=== PATIENT | male | born 1975 | race Caucasian/White ===

== ENCOUNTER 2023-01-16 15:03 | Outpatient (OUT) | payer OTHER, SELFPAY ==
[2023-01-16 15:23] LABS: Basophils Absolute Auto 0.1 10^3/uL (0.0-0.1); Basophils Percent Auto 0.8 % (0.2-2.0); Eosinophils Absolute Auto 0.1 10^3/uL (0.0-0.7); Hematocrit 44.1 % (42.0-54.0); Hemoglobin 14.8 g/dL (14.0-18.0); Immature Granulocytes Abs Auto 0.01 10^3/uL (0.00-0.03); Immature Granulocytes Pct Auto 0.1 % (0.0-0.5); Lymphocytes Absolute Auto 2.2 10^3/uL (1.2-3.8); Mean Corpuscular HGB Conc 33.6 g/dL (29.9-35.2); Mean Corpuscular Hemoglobin 30.4 pg (25.9-34.0); Mean Corpuscular Volume 90.6 fL (80.0-94.0); Mean Platelet Volume 9.2 fL (9.5-13.5); Monocytes Absolute Auto 0.7 10^3/uL (0.3-0.8); Monocytes Percent Auto 8.4 % (1.7-12.0); Neutrophils Absolute Auto 4.9 10^3/uL (1.4-6.5); Neutrophils Percent Auto 61.7 % (43.0-75.0); Platelet Count 266 10^3/uL (150-450); Red Blood Count 4.87 10^6/uL (4.70-6.10); Red Cell Distribution Width 12.7 % (11.0-15.0); White Blood Count 7.9 10^3/uL (4.0-11.0)
[2023-01-16 15:37] LABS: Estimated Average Glucose 108 mg/dL; Glycohemoglobin A1C 5.4 % (4.5-6.2)
[2023-01-16 15:50] LABS: Alanine Aminotransferase 25 U/L (16-63); Albumin Globulin Ratio 1.1; Albumin Level 4.2 g/dL (3.4-5.0); Alkaline Phosphatase 67 U/L (46-116); Anion Gap 8.6; Aspartate Amino Transferase 17 U/L (15-37); Bilirubin Direct 0.1 mg/dL (0.0-0.2); Bilirubin Total 0.5 mg/dL (0.2-1.0); Calcium 9.3 mg/dL (8.5-10.1); Chloride 103 mmol/L (98-107); Chol HDL Ratio 3.9; Cholesterol 189 mg/dL (<=200); Estimated GFR (African America >60 (>=60); Estimated GFR (Non-African Ame >60 (>=60); Globulin 3.7 g/dL; Glucose 80 mg/dL (74-106); HDL Cholesterol 49 mg/dL (40-60); Potassium 3.6 mmol/L (3.5-5.1); Sodium 140 mmol/L (136-145); Thyroid Stimulating Hormone 3.241 uIU/mL (0.358-3.740); Total Protein 7.9 g/dL (6.4-8.2); Triglycerides 185 mg/dL (<=150)
[2023-01-16 15:55] LABS: Prostate Specific Antigen Scrn 1.14 ng/mL (<=4.00)
== END 2023-01-16 15:04 | disposition home or self-care (01) ==
LOC: LAB 15:10
PROVIDERS: PCP Family Medicine; Visit Provider Family Medicine
DX: Z00.00 Encounter for general adult medical examination without abnormal findings (principal)
CPT/HCPCS: 36415; 80048; 80061; 80076; 83036; 84443; 85025; G0103

== ENCOUNTER 2025-02-23 13:44 | Outpatient (OUT) | payer OTHER, SELFPAY ==
--- OUTSIDE RECORDS SUMMARY | 2025-02-23 13:48 | XMS_ITS | Clinical Summary ---
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 Discussed proper diet and regular aerobic exercise. Need aerobic exercise 5-6 days a week for 30 minutes at a time. Smaller portions and limit total calories. Refer for colonoscopy. Tetanus every 10 years. Advised not to smoke. Discussed daily Aspirin therapy. Social History Tobacco UseTypesPacks/DayYears UsedDateSmoking Tobacco: NeverSmokeless Tobacco: Never Tobacco Cessation:Counseling Given: Not Answered Sex and Gender InformationValueDate RecordedSex Assigned at BirthNot on file Legal OjoYukc43/29/2023 9:18 AM ESTGender IdentityNot on fileSexual Orientation Not on file Last Filed Vital Signs Vital SignReadingTime TakenCommentsBlood Ifspwqic632/6601/27/2024 2:19 PM EST Higuj825301/27/2024 2:19 PM ZSNRhlhwtykehk75.2 ??C (97.1 ??F)01/27/2024 2:19 PM ESTRespiratory Fdxn370203/29/2023 2:19 PM ESTOxygen Edailkswed40%01/27/2024 2:19 PM ESTInhaled Oxygen Concentration--Fqibmn06.7 kg (169 lb)01/27/2024 2:19 PM EST Psmabs618.7 cm (5' 8 )01/27/2024 2:19 PM ESTBody Mass Index25.7103/29/2023 2:19 PM EST Plan of Treatment Not on file Insurance Care Teams Team MemberRelationshipSpecialtyStart DateEnd Date Neil Baird MD PCP - GeneralFamily Gcmxvyas09/2/24
--- OUTSIDE RECORDS SUMMARY | 2025-02-23 13:48 | XMS_ITS | Clinical Summary ---
Author Organization [email or web address] [facility] Address [id number] [address] 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 Max Daily Amount:4 tablets 15 tablet 06/28/2017Active Additional Information Patient not taking.Reported on 07/12/2017 sulfamethoxazole-trimethoprim (BACTRIM DS) 800-160 mg per tablet Take 1 tablet by mouth 2 (two) times a day. 28 tablet 07/26/2017Active Additional Information Patient not taking.Reported on 08/30/2017 Active Problems No known active problems Family History Medical HistoryRelationNameCommentsHypertensionMotherRelationNameStatusComments Mother Social History Tobacco UseTypesPacks/DayYears UsedDateSmoking Tobacco: NeverSmokeless Tobacco: NeverAlcohol UseStandard Drinks/WeekCommentsYes0 (1 standard drink = 0.6 oz pure alcohol)socialChildcareAnswerDate QqxrmkdlWfwhuglumJbngmsl56/12/2019Employment AnswerDate PmrhwgkdJhtqasawojZoykcac46/12/2019Purpose - LifeAnswerDate Recorded Purpose and direction in xakdVolgrsx18/11/2021Sex and Gender InformationValue Date RecordedSex Assigned at BirthNot on fileLegal TaxLlci9609/30/2014 11:55 AM EDTGender IdentityNot on fileSexual OrientationNot on file Last Filed Vital Signs Vital SignReadingTime TakenCommentsBlood Ohvkurqs009/7207 8:49 AM EDT Pulse--Temperature--Respiratory Rate--Oxygen Saturation--Inhaled Oxygen Concentration--Uiexyl73.6 kg (160 lb)08/30/2017 8:49 AM LLNWrutrn384.3 cm (5' 9 )08/30/2017 8:49 AM EDTBody Mass Index23.63008/30/2017 8:49 AM EDT Plan of Treatment Health MaintenanceDue DateLast DoneCommentsDepression Kgksutkbd72/18/1990Tobacco Jjvrwaqor72/18/1990Adult BMI Veglmxzly93/18/1996DTaP,Tdap and Td Vaccines (1 - Tdap)1996Influenza Zdlznls3310/26/2024 Medical Devices Not on file Insurance Care Teams Team MemberRelationshipSpecialtyStart DateEnd Date Neil Baird MD PCP - General05/06/17
[2025-02-23 14:13] LABS: Hematocrit 43.5 % (42.0-54.0); Hemoglobin 14.9 g/dL (14.0-18.0); Immature Granulocytes Abs Auto 0.01 10^3/uL (0.00-0.03); Immature Granulocytes Pct Auto 0.1 % (0.0-0.5); Lymphocytes Absolute Auto 2.2 10^3/uL (1.2-3.8); Mean Corpuscular HGB Conc 34.3 g/dL (29.9-35.2); Mean Corpuscular Hemoglobin 30.6 pg (25.9-34.0); Mean Corpuscular Volume 89.3 fL (80.0-94.0); Platelet Count 269 10^3/uL (150-450); Red Blood Count 4.87 10^6/uL (4.70-6.10); White Blood Count 7.4 10^3/uL (4.0-11.0)
[2025-02-23 14:48] LABS: Alanine Aminotransferase 50 U/L (16-63); Albumin Globulin Ratio 1.2; Albumin Level 4.1 g/dL (3.4-5.0); Alkaline Phosphatase 73 U/L (46-116); Anion Gap 10.9; Aspartate Amino Transferase 26 U/L (15-37); Blood Urea Nitrogen 20.0 mg/dL (7.0-18.0); Calcium 9.2 mg/dL (8.5-10.1); Carbon Dioxide 28.9 mmol/L (21.0-32.0); Chloride 106 mmol/L (98-107); Cholesterol 231 mg/dL (<=200); Estimated GFR (African America >60 (>=60 mL/min/1.73m^2); Estimated GFR (Non-African Ame >60 (>=60 mL/min/1.73m^2); Globulin 3.3 g/dL; Glucose 98 mg/dL (74-106); HDL Cholesterol 46 mg/dL (40-60); Potassium 3.8 mmol/L (3.5-5.1); Sodium 142 mmol/L (136-145); Thyroid Stimulating Hormone 2.157 uIU/mL (0.358-3.740); Total Protein 7.4 g/dL (6.4-8.2); Triglycerides 177 mg/dL (<=150); VLDL CHOLESTEROL 35.4 mg/dL
--- OUTSIDE RECORDS SUMMARY | 2025-02-23 15:21 | XMS_ITS | CCD ---
Author Organization [facility] Care Team Providers Care Supervisor Sulfuric Acid Plant Name Role Phone DR NEIL CHEN Admitting Unavailable DR NEIL CHEN Attending Unavailable DR NEIL CHEN Primary Care Unavailable DR NEIL CHEN Consulting Unavailable Neil Chen MD Primary Care Provider NEIL CHEN Attending Unavailable Neil Chen MD Primary Care Provider Medications Current Medications MedicationDrug Class(es)DatesSig (Normalized)Sig (Original)acetaminophen 325 mg / oxyCODONE hydrochloride 5 mg oral tablet (1 source)Opioid AgonistStart: 53-64-9859cljZPCYUW-acetaminophen (PERCOCET) 5- 325 mg per tablet Indications: Encounter for sterilization Take 1 tablet by mouth every 6 (six) hours as needed for pain for up to 15 doses. Max Daily Amount: 4 tablets 15 tablet 06/28/2017 Activesulfamethoxazole 800 mg / trimethoprim 160 mg oral tablet (1 source)Dihydrofolate Reductase Inhibitor Antibacterial, Sulfonamide AntimicrobialStart: 33-98-7673jzkf 1 tablet by mouth twice daily sulfamethoxazole-trimethoprim (BACTRIM DS) 800-160 mg per tablet Take 1 tablet by mouth 2 (two) times a day. 28 tablet 07/26/2017 Active Problems Active Problems Problem ClassificationProblemDateDocumented DateEpisodic/ChronicOther screening for suspected conditions (not mental disorders or infectious disease) (3 sources)Encounter for screening for malignant neoplasm of prostate; Translations: [Patient encounter status]Onset: [id number] Past or Other Problems Problem ClassificationProblemDateDocumented DateEpisodic/ChronicUnclassified (2 sources)Patient encounter [id number] Results Test NameValueInterpretationReference RangeFacilityCBC AUTO DIFFon 01-15-2022 BASO #0.1 103/ulNormal0.0-0.1The [facility] HospitalComment on above:Performed By: #### CBC #### [facility] [address] [place] [address] Dr. Jennifer DonovanBasophils/100 WBC (Bld)0.8 %Normal0.2-2.0The [facility] Comment on above:Performed By: #### CBC #### [facility] [address] [place] [address] Dr. Jennifer Cardoza #0.1 103/ulNormal0.0-0.7The [facility] HospitalComment on above: Performed By: #### CBC #### [facility] [address] [place] [address] Dr. Jennifer Jiangosinophils/100 WBC (Bld)0.8 %Critically low0.9-7.0The [facility] HospitalComment on above:Performed By: #### CBC #### [facility] [address] [place] [address] Dr. Jennifer Jiangrythrocyte distribution width (RBC) [Ratio]12.7 %Pkcrmc69.0-15.0 The [facility] HospitalComment on above:Performed By: #### CBC #### [facility] [address] [place] [address] Dr. Jennifer DonovanHematocrit (Bld) [Volume fraction]44.9 %Equfuz99.0-54.0The [facility] HospitalComment on above:Performed By: #### CBC #### [facility] [address] [place] [address] Dr. Jennifer DonovanHemoglobin (Bld) [Mass/Vol]15.0 g/mYZxdflb58.0-18.0The [facility] HospitalComment on above:Performed By: #### CBC #### [facility] [address] [place] [address] Dr. Jennifer Pavon #0.01 10e3/ulNormal0.00-0.03The [facility] HospitalComment on above:Performed By: #### CBC #### [facility] [address] [address] [address] Jennifer Pavon %0.2 %Normal0.0-0.5The [facility] HospitalComment on above: Performed By: #### CBC #### [facility] [address] [place] [address] Dr. Jennifer Robb #2.1 103/ulNormal1.2-3.8The [facility] HospitalComment on above:Performed By: #### CBC #### [facility] [address] [place] [address] Dr. Jennifer Navarretehocytes/100 WBC (Bld)34.2 %Gmhkrq65.5-60.0The [facility] HospitalComment on above:Performed By: #### CBC #### [facility] [address] [place] [address] Dr. Jennifer BrownUAL DIFF REQNONormalThe [facility] HospitalComment on above: Performed By: #### CBC #### [facility] [address] [place] [address] Dr. Jennifer Dodson (RBC) [Entitic mass]29.8 jdUlawxb01.9-34.0The [facility] HospitalComment on above:Performed By: #### CBC #### [facility] [address] [place] [address] Dr. Jennifer Dodson (RBC) [Mass/Vol]33.4 g/hTIougcp90.9-35.2The [facility] HospitalComment on above:Performed By: #### CBC #### [facility] [address] [place] [address] Dr. Jennifer Dodson (RBC) [Entitic vol]89.3 iYGakaob96.0-94.0The [facility] HospitalComment on above:Performed By: #### CBC #### [facility] [address] [place] [address] Dr. Jennifer Orourke #0.5 103/ulNormal0.3-0.8The [facility] HospitalComment on above:Performed By: #### CBC #### [facility] [address] [address] [address] Jennifer Santiagoocytes/100 WBC (Bld)7.7 %Normal1.7-12.0The [facility] Comment on above:Performed By: #### CBC #### [facility] [address] [place] [address] Dr. Jennifer MarinelliUT #3.4 103/ulNormal1.4-6.5The [facility] HospitalComment on above:Performed By: #### CBC #### [facility] [address] [place] [address] Dr. Jennifer Marinelliutrophils/100 WBC (Bld)56.3 %Ychbhs15.0-75.0The [facility] HospitalComment on above:Performed By: #### CBC #### [facility] [address] [place] [address] Dr. Jennifer DonovanPlatelet mean volume (Bld) [Entitic vol]9.8 fLNormal9.5-13.5The [facility] HospitalComment on above:Performed By: #### CBC #### [facility] [address] [place] [address] Dr. Jennifer DonovanPLT274 103/mrBlmhfn336-254Pix [facility] HospitalComment on above: Performed By: #### CBC #### [facility] [address] [place] [address] Dr. Jennifer DonovanRBC5.03 106/ulNormal4.70-6.10The [facility] HospitalComment on above:Performed By: #### CBC #### [facility] [address] [place] [address] Dr. Jennifer DonovanWBC6.0 103/ulNormal4.0-11.0The [facility] HospitalComment on above: Performed By: #### CBC #### [facility] [address] [place] [address] Dr. Jennifer DonovanGLYCOHEMOGLOBIN A1Con 61-73-3721WVT RECOMMENDATIONSEE BELOWNormal The [facility] HospitalComment on above:Result Comment: ADA RECOMMENDED LIMIT 4.0 - 6.0 ADA THERAPEUTIC TARGET < 7.0 ACTION SUGGESTED > 7.0Performed By: #### A1C #### [facility] [address] [address] [address] Jennifer DonovanGlucose [Mass/Vol]111 mg/dLNoUniversity Hospitals Samaritan Medical CenterComment on above:Performed By: #### A1C #### [facility] [address] [address] [address] Jennifer DonovanHbA1c (Bld) [Mass fraction]5.5 %Normal4.5-6.2The [facility] HospitalComment on above:Performed By: #### A1C #### [facility] [address] [place] [address] Dr. Jennifer DonovanLIPID PROFILEon 04-99-0813UKWP-HDL RATIO NORMSEE [facility] CenterComment on above:Result Comment: 3.3 - 4.4 LOW RISK 4.4 - 7.1 AVERAGE RISK 7.1 - 11.0 MODERATE RISK >11.0 HIGH RISKPerformed By: #### TSH, BMP, LIPID, LIVER #### [facility] [address] [place] [address] Dr. Jennifer DonovanCholesterol [Mass/Vol]182 mg/dLNormal<=200The [facility] Comment on above:Performed By: #### TSH, BMP, LIPID, LIVER #### [facility] [address] [place] [address] Dr. Jennifer DonovanCholesterol in HDL [Mass/Vol]48 mg/fZGzfbhz38-91Yrk [facility] HospitalComment on above:Performed By: #### TSH, BMP, LIPID, LIVER #### [facility] [address] [address] [address] Jennifer DonovanCholesterol in LDL [Mass/Vol]110.8 mg/dLMansfield Hospital on above:Performed By: #### TSH, BMP, LIPID, LIVER #### [facility] [address] [place] [address] Dr. Jennifer Alfredoesterxochilt.total/Cholesterol in HDL [Mass ratio]3.8 {ratio} NormalThe Rachel HospitalComment on above:Performed By: #### TSH, BMP, LIPID, LIVER #### [facility] [address] [address] [address] Jennifer Obregon NORMAL> or = 60 mg/dl - LOW CARDIOVASCULAR RISK <40 mg/dl - HIGH CARDIOVASCULAR RISKLutheran HospitalComment on above:Performed By: #### TSH, BMP, LIPID, LIVER #### [facility] [address] [address] [address] Jennifer DonovanLDL CALC NORMALSEE BELOWNoUniversity Hospitals Samaritan Medical CenterComment on above:Result Comment: <100 mg/dl OPTIMAL 100 - 129 mg/dl NEAR OR ABOVE OPTIMAL 130 - 159 mg/dl BORDERLINE HIGH 160 - 189 mg/dl HIGH >190 mg/dl VERY HIGH Performed By: #### TSH, BMP, LIPID, LIVER #### [facility] [address] [place] [address] Dr. Jennifer DonovanTriglyceride [Mass/Vol]116 mg/dLNormal<=150[facility] Comment on above:Performed By: #### TSH, BMP, LIPID, LIVER #### [facility] [address] [address] [address] Jennifer Harrison CALC23.2 mg/dLNoUniversity Hospitals Samaritan Medical CenterComtrinity health [facility] on above: Performed By: #### TSH, BMP, LIPID, LIVER #### [facility] [address] [place] [address] Dr. Jennifer Bonilla PROFILEon 05-48-6684Jjuyuzq [Mass/Vol]4.5 g/dLNormal3.4-5.0 The [facility] HospitalComtrinity health mus[facility]gon hospital on above:Performed By: #### TSH, BMP, LIPID, LIVER #### [facility] [address] [place] [address] Dr. Jennifer DonovanAlbumin/Globulin [Mass ratio]1.3 {ratio}NormalDayton Children's Hospital on above:Performed By: #### TSH, BMP, LIPID, LIVER #### [facility] [address] [address] [address] Jennifer Milian [Catalytic activity/Vol]68 U/NFpkfjm93-537Hrq [facility] HospitalComment on above:Performed By: #### TSH, BMP, LIPID, LIVER #### [facility] [address] [place] [address] Dr. Jennifer Stewart [Catalytic activity/Vol]23 U/GCipczi97-13Eew [facility] HospitalComment on above:Performed By: #### TSH, BMP, LIPID, LIVER #### [facility] [address] [address] [address] Jennifer Vee [Catalytic activity/Vol]15 U/BKoxkeb59-72Gws [facility] HospitalComment on above:Performed By: #### TSH, BMP, LIPID, LIVER #### [facility] [address] [place] [address] Dr. Jennifer NowakI, CONJUGATED0.1 mg/dLNormal0.0-0.2The [facility] Comment on above:Performed By: #### TSH, BMP, LIPID, LIVER #### [facility] [address] [place] [address] Dr. Jennifer Nowakirubin [Mass/Vol]0.5 mg/dLNormal0.2-1.0[facility] Comment on above:Performed By: #### TSH, BMP, LIPID, LIVER #### [facility] [address] [place] [address] Dr. Jennifer DonovanGlobulin (S) [Mass/Vol]3.5 g/dLNormalThe [facility] HospitalComment on above:Performed By: #### TSH, BMP, LIPID, LIVER #### [facility] [address] [place] [address] Dr. Jennifer DonovanProtein [Mass/Vol]8.0 g/dLNormal6.4-8.2[facility] Comment on above:Performed By: #### TSH, BMP, LIPID, LIVER #### [facility] [address] [place] [address] Dr. Jennifer DonovanPROF CHEM 8 (BAS METB)on 09-23-8368Mxvxj gap [Moles/Vol]10.2 mmol/LNormalThe [facility] HospitalComment on above:Performed By: #### TSH, BMP, LIPID, LIVER #### [facility] [address] [address] [address] Jennifer DonovanCalcium [Mass/Vol]9.2 mg/dLNormal8.5-10.1[facility] Comment on above:Performed By: #### TSH, BMP, LIPID, LIVER #### [facility] [address] [place] [address] Dr. Jennifer DonovanChloride [Moles/Vol]103 mmol/HObprtd62-289Esr [facility] Comment on above:Performed By: #### TSH, BMP, LIPID, LIVER #### [facility] [address] [place] [address] Dr. Jennifer DonovanCO2 [Moles/Vol]31.2 mmol/GOrjgpl74.0-32.0[facility] Comment on above:Performed By: #### TSH, BMP, LIPID, LIVER #### [facility] [address] [place] [address] Dr. Jennifer DonovanCreatinine [Mass/Vol]1.14 mg/dLNormal0.70-1.30The [facility] HospitalComment on above:Performed By: #### TSH, BMP, LIPID, LIVER #### [facility] [address] [place] [address] Dr. Jennifer JiangGFR-AF LUXEMBOURGER>60Normal>=60The [facility] HospitalComment on above:Performed By: #### TSH, BMP, LIPID, LIVER #### [facility] [address] [place] [address] Dr. Jennifer JiangGFR-NON AF LUXEMBOURGER>60Normal>=60The [facility] HospitalComment on above:Performed By: #### TSH, BMP, LIPID, LIVER #### [facility] [address] [place] [address] Dr. Jennifer DonovanGlucose [Mass/Vol]97 mg/lPAfdkek05-712QwfFirelands Regional Medical Center Comment on above:Performed By: #### TSH, BMP, LIPID, LIVER #### [facility] [address] [place] [address] Dr. Jennifer DonovanPotassium [Moles/Vol]3.4 mmol/LCritically low3.5-5.1The [facility] HospitalComment on above:Performed By: #### TSH, BMP, LIPID, LIVER #### [facility] [address] [address] [address] Jennifer DonovanSodium [Moles/Vol]141 mmol/XGcppeg015-130Mhn [facility] Comment on above:Performed By: #### TSH, BMP, LIPID, LIVER #### [facility] [address] [address] [address] Jennifer DonovanUrea nitrogen [Mass/Vol]14.0 mg/dLNormal7.0-18.0The [facility] HospitalComment on above:Performed By: #### TSH, BMP, LIPID, LIVER #### [facility] [address] [address] [address] Jennifer Dougherty nitrogen/Creatinine [Mass ratio]12.3 mg/mgNormalThe [facility] HospitalComment on above:Performed By: #### TSH, BMP, LIPID, LIVER #### [facility] [address] [address] [address] Jennifer Louie 69-55-1649THK5.226 uIU/mLNormal0.358-3.740The [facility] HospitalComment on above:Performed By: #### TSH, BMP, LIPID, LIVER #### [facility] [address] [address] [address] Jennifer Donovan Vital Signs Date TimeVital SignValuePerforming NgkgplwwnVrkxjhqk87-54-4801 14:19-0500Body tthfmo323.7 cmNeil Chen MD Work Phone: noHaw[facility] Psychiatric HospitalJiowsxboef43-55-8752 14:19-0500Body mass index (BMI) [Ratio]25.7 kg/m2Neil Chne MD Work Phone: noHawthorn [facility] Psychiatric HospitalBlnwafjvds51-97-9160 14:19-0500Body temperature 97.11 [degF]Neil Chen MD Work Phone: [facility] CenterEjndwkgklm11-34-6436 14:19-0500Body bybcmm49.66 kgNeil Chen MD Work Phone: noHaw[facility] Psychiatric HospitalNvbfcjknfi30-36-2882 14:19-0500Diastolic blood byiwbzkj98 mm[Hg]Neil Chen MD Work Phone: noHawth[facility] Psychiatric HospitalQecyhsuhef68-82-5671 14:19-0500Heart rate78 /min Neil Chen MD Work Phone: noHaw[facility]iatric HospitalZoyoazrwyc69-16-2743 14:19-0500Respiratory rate18 /minNeil Chen MD Work Phone: noHawthorn [facility] Psychiatric HospitalTssisqpbkw76-34-4352 14:19-5470CuK1% (BldA) [Mass fraction]99 %Neil Chen MD Work Phone: noHawthorn [facility] Psychiatric HospitalQvugilnffy65-25-3032 14:19-0500Systolic blood gipwvrze773 mm[Hg]Neil Chen MD Work Phone: [facility] Encounters Encounter DateEncounter TypeCare ProviderFacilityStart: 01-29-2024 End: 49-86-4686Vavmxmdgp encounterJesshussain NUNESPOULTRY BREEDER Work Phone: [facility] SurgeryStart: 01-27-2024 End: 13-46-5612Zfhqtwpe preventive med est patient 40-64yrsMarc Brie RAMOS Work Phone: [facility] FMComment on above:Annual physical exam (Primary Dx); Colon cancer screeningStart: 01-27-2024 End: 61-44-7033wvjncuwzjoVDFU NADERERNot AvailableStart: 01-27-2024 End: 50-89-6337Wnefli flowsMao Chen MD Work Phone: [facility] FMStart: 01-27-2024 End: 19-36-0986Kisjpe flowsMao Chen MD Work Phone: [facility] FMStart: 01-27-2024 End: 18-27-9386Qcgcact encounter procedureNeil Chen MD Work Phone: [facility] HealthcareStart: 69-94-9627Jtjgpqbqg for general adult medical examination without abnormal findingsDR NEIL Burden [facility] HospitalStart: 01-15-2022 End: 05-91-4784egflmomxbjGQ NEIL IVORYRFacility:I0Ldgkz: 01-15-2022 End: 04-26-4684Ialutmalu for general adult medical examination without abnormal findingsDR NEIL IVORYRFacility:H1 Procedures DateProcedureProcedure DetailPerforming ClinicianStart: 07-02-9997CQM screening DR NEIL MEDINAomment on above:Performed By: #### PSASC #### [facility] [address] [place] [address] Dr. Jennifer Donovan Plan of Treatment DateCare ActivityDetailAuthorStart: 01-27-2024 End: 24-43-9874Hatjtyd encounter gyfcxmtsp08/02/2024 2:15 PM EST Office Visit [facility] [address] [place] [phone] Neil Chen MD [address] [place] [phone] ArrivedNOALLIANCEHEALTH [facility] FMComment on above:ArrivedStart: 01-27-2024 End: 44-47-2069Esufu metabolic 1998 panel - Serum or PlasmaBasic metabolic panel Lab Routine Annual physical exam Expected: 01/27/2024 (Approximate), Expires: 01/26/2025[facility] HealthcareComment on above:Expected: 01/27/2024 (Approximate), Expires: 01/26/2025Start: 01-27-2024 End: 70-70-1832NYW W Auto Differential panel - BloodCBC and differential Lab Routine Annual physical exam Expected: 01/27/2024 (Approximate), Expires: 1 03/29/2024[facility] HealthcareComment on above:Expected: 01/27/2024 (Approximate), Expires: 01/26/2025Start: 01-27-2024 End: 32-32-2655Bdhvthejgg A1c/Hemoglobin.total in BloodHemoglobin A1c Lab Routine Annual physical exam Expected: 01/27/2024 (Approximate), Expires: 01/26/2025[facility] Work Phone: Comment on above:Expected: 01/27/2024 (Approximate), Expires: 01/26/2025Start: 01-27-2024 End: 62-11-6897Taldsks function 2000 panel - Serum or PlasmaHepatic function panel Lab Routine Annual physical exam Expected: 01/27/2024 (Approximate), Expires: 01/26/2025[facility] HealthcareComment on above:Expected: 01/27/2024 (Approximate), Expires: 01/26/2025Start: 01-27-2024 End: 17-35-4828Efxxy 1996 panel - Serum or PlasmaLipid panel Lab Routine Annual physical exam Expected: 01/27/2024 (Approximate), Expires: 01/26/2025[facility] HealthcareComment on above:Expected: 01/27/2024 (Approximate), Expires: 01/26/2025Start: 01-27-2024 End: 35-46-5901Astzhtjd specific Ag [Mass/volume] in Serum or PlasmaPSA Lab Routine Annual physical exam Expected: 01/27/2024 (Approximate), Expires: 01/26/2025[facility] HealthcareComment on above:Expected: 01/27/2024 (Approximate), Expires: 01/26/2025Start: 01-27-2024 End: 14-54-1863Rhfkwogssga [Units/volume] in Serum or PlasmaTSH Lab Routine Annual physical exam Expected: 01/27/2024 (Approximate), Expires: 01/26/2025[facility] HealthcareComment on above:Expected: 01/27/2024 (Approximate), Expires: 01/26/2025Start: 79-68-0676Mgjectzmx vaccinationKANE COUNTY HUMAN RESOURCE SSD HealthcareStart: 1996 DTaP,Tdap and Td Vaccines (1 - Tdap)DTaP,Tdap and Td Vaccines (1 - Tdap) [facility] Beat My Waste Quote SystemStart: 43-14-7264Ogdva BMI ScreeningAdult BMI Screening [facility] SystemStart: 28-38-8394Qvjzbxfsle ScreeningDepression Screening [facility] SystemStart: 60-67-5541Wvavuso ScreeningTobacco Screening [facility] SystemStart: 62-57-5067Embopopkw for malignant neoplasm of colonKANE COUNTY [facility] Payers DatePayer CategoryPayerPolicy [id number] OTHER [id number] 75-57-2696Zchswou Care Other (unspecified)FRONTPATH [id number] Social History DateTypeDetailFacilityTobacco smoking status NHISTobacco smoking consumption unknownNOPR HealthcareStart: 90-47-5502Ubw assigned at birthNot on fileNOMS HealthcareStart: 04-07-2020 End: 68-51-4601Pegpml identityNot on [facility] HealthcareStart: 05-22-2017 End: 96-62-5065Clhqbra smoking status NHISNever smoked tobaccoNOMS Healthcare Start: 05-22-2017 End: 87-15-0318Zevkrnj use and exposureSmokeless tobacco non-userNOMS Healthcare Start: 04-07-2020 End: 99-52-8439Qbnftlx of Social functionNOPR HealthcareStart: 07-26-2017 Alcoholic beverage intakeCurrent drinker of alcohol (finding)[facility] HospitalChildcareUnknowBerger Hospital SystemStart: 78-96-6676Rmbrfzf Comment [facility] SystemStart: 03-90-2246EnvNfbx (finding)[facility] Note 01-29-2024 Note Date & BgvdBaioCqyhkwau00-56-2042 Miscellaneous Notes* Telephone Encounter - Jailene Mills - 01/29/2024 10:34 AM EST Called Lindy regarding the screening colonoscopy referral that our office received from Dr Isa carrasco, was unable to leave a message as the voicemail box is full. We are unable to find out if we are providers for their insurance, so he would be considered as self pay. Called Dr Chen's office and spoke to Maya, she is going to try to contact the patient to see ifthey wish to check with their insurance to see if we are providers, if not Dr Chen will have to refer them elsewhere. documented in [facility] encounterNew[facility] Hospital Telephone encounter Note 01-29-2024 Note Date & CqqcMmmbDlinczou56-07-3855 Telephone encounter Note* Telephone Encounter - Jailene Mills - 01/29/2024 10:34 AM EST Called Lindy regarding the screening colonoscopy referral that our office received from Dr Isa carrasco, was unable to leave a message as the voicemail box is full. We are unable to find out if we are providers for their insurance, so he would be considered as self pay. Called Dr Chen's office and spoke to Maya, she is going to try to contact the patient to see ifthey wish to check with their insurance to see if we are providers, if not Dr Chen will have to refer them elsewhere. [facility] History of Present illness Narrative 01-27-2024 Note Date & IkksXzlqGtwebdyx72-74-3742 History of Present illness Narrative* Neil Chen MD - 01/27/2024 3:26 PM ESTAssociated Problem(s): Annual physical exam Due for labs. Discussed proper diet and regular aerobic exercise. Need aerobic exercise 5-6 days a week for 30 minutes at a time. Smaller portions and limit total calories. Refer for colonoscopy. Tetanus every 10 years. Advised not to smoke. Discussed daily Aspirin therapy. * Neil Chen MD - 01/27/2024 2:15 PM EST Images from the original note were not included. Subjective Patient ID: Frank Heck is a 48 y.o. male who presents for Annual Exam (wellness). Presents for annual PE. Doing well at today's visit. Weight unchanged over the past year. Tries to walk and stay active with the kids. Exercises several days a week. Tries to watch diet and eat healthy. Tries to limit portions and snacking. Tries to limit total daily calories. Due for labs. Never had colon cancer screening. Needs paperwork completed for insurance. Review of Systems Constitutional: Negative for fatigue. Respiratory: Negative for cough, shortness of breath and wheezing. Cardiovascular: Negative for chest pain and palpitations. Gastrointestinal: Negative for abdominal pain, diarrhea, nausea and vomiting. Genitourinary: Negative for dysuria. Objective Physical Exam Constitutional: General: He is not in acute distress. Appearance: Normal appearance. HENT: Head: Normocephalic. Right Ear: Tympanic membrane and ear canal normal. Left Ear: Tympanic membrane and ear canal normal. Eyes: Extraocular Movements: Extraocular movements intact. Pupils: Pupils are equal, round, and reactive to light. Cardiovascular: Rate and Rhythm: Normal rate and regular rhythm. Heart sounds: No murmur heard. No friction rub. No gallop. Pulmonary: Breath sounds: Normal breath sounds. No wheezing, rhonchi or rales. Abdominal: General: Bowel sounds are normal. There is no distension. Palpations: Abdomen is soft. Tenderness: There is no abdominal tenderness. There is no guarding or rebound. Musculoskeletal: General: Normal range of motion. Left lower leg: No edema. Neurological: General: No focal deficit present. Mental Status: He is alert. Cranial Nerves: No cranial nerve deficit. Deep Tendon Reflexes: Reflexes normal. Assessment/Plan Problem List Items Addressed This Visit Annual physical exam - Primary Due for labs. Discussed proper diet and regular aerobic exercise. Need aerobic exercise 5-6 days a week for 30 minutes at a time. Smaller portions and limit total calories. Refer for colonoscopy. Tetanus every 10 years. Advised not to smoke. Discussed daily Aspirin therapy. Relevant Orders Hemoglobin A1c Basic metabolic panel CBC and differential Hepatic function panel Lipid panel PSA TSH Other Visit Diagnoses Colon cancer screening Relevant Orders Ambulatory referral to General [facility] Note Date & TypeNoteFacilityEvaluation note* Diagnosis Annual physical exam- Primary Routine general medical examination at a health care facility Colon cancer screening Special screening for malignant neoplasms, colon documented in this encounter [facility] Instructions Note Date & TypeNoteFacilityInstructionsNot on filedocumented in this encounter [facility] Summary Purpose Family History No Family History Records FoundNo Family History Records Found Advance Directives No Advanced Directives Records FoundNo Advanced Directives Records Found Additional Source Comments (unrecognized sect ion and content) No Status Records FoundNo Status Records Found INFORMATION SOURCE (unrecogn ized section and content) DATE CREATED AUTHOR 01/20/2022 [facility] DATE CREATED AUTHOR AUTHOR'S ORGANIZ ATION 01/28/2024 [facility] EPIC Care Teams (unrecognized sec tion and content) Team MemberRelationshipSpecialtyStart DateEnd Date Neil Chen MD [address] [place] [address] PCP - GeneralFamily [id number] MemberRelationshipSpecialtyStart DateEnd Date Neil Chen MD [address] [place] [address] [facility] [id number]/24Te MemberRelationshipSpecialtyStart DateEnd Date Neil Chen MD PCP - General05/06/17 Reason for Visit (unrecogniz ed section and content) ReasonCommentsAnnual Examwellness FOR RECORDS PERTAINING TO PATIENTS WHO ARE OR HAVE BEEN ENROLLED IN A CHEMICAL DEPENDENCY/SUBSTANCEABUSE PROGRAM, SOME INFORMATION MAY BE OMITTED. This clinical summary was aggregated from multiple sources. Caution should be exercised in using it in the provision of clinical care. This summary normalizes information from multiple sources, and as a consequence, information in this document may materially change the coding, format and clinical context of patient data. In addition, data may be omitted in some cases. CLINICAL DECISIONS SHOULD BE BASED ON THE PRIMARY CLINICAL RECORDS. [employer] provides no warranty or guarantee of the accuracy or completeness of information in this document.
== END 2025-02-23 13:45 | disposition home or self-care (01) ==
LOC: LAB 13:46
PROVIDERS: PCP Family Medicine; Visit Provider Family Medicine
DX: Z00.00 Encounter for general adult medical examination without abnormal findings (principal); Z12.5 Encounter for screening for malignant neoplasm of prostate
CPT/HCPCS: 36415; 80053; 80061; 83036; 84443; 85025; G0103